=== PATIENT | male | born 1940 | race Caucasian/White ===

== ENCOUNTER 2018-02-14 10:33 | Emergency (ER) | payer MEDICARE, BC ==
[2018-02-14 10:44] VITALS: BP 151/81
--- NOTE | 2018-02-16 06:29 | UC ---
Evin Guadalupe Natalie, scribed for Genaro Pritchett MD on 02/14/18 at 1338 . Ear Complaint HPI - HPI Summary HPI Summary: The patient is a 77 y/o M presenting to [facility] c/o rubber covering from hearing aid getting stuck in his right ear. He was taking out his hearing aid when the rubber covering stayed in, and he couldn't get it out. He denies fever and chills. He does not take any medications. He is allergic to ampicillin. - History of Current Complaint Chief Complaint: UCEar Stated Complaint: FOREIGN BODY LODGED IN EAR Time Seen by Provider: 02/14/18 11:28 Hx Obtained From: Patient Onset/Duration: Sudden Onset, Lasting Hours, Still Present Pain Intensity: 0 Pain Scale Used: 0-10 Numeric Aggravating Factors: Nothing Alleviating Factors: Nothing Associated Signs/Symptoms: Positive: Foreign Body Sensation - covering in right ear - Allergies/Home Medications Allergies/Adverse Reactions: Allergies Allergy/AdvReac Type Severity Reaction Status Date / Time ampicillin Allergy Hives Verified 02/14/18 10:44 PMH/Surg Hx/FS Hx/Imm Hx - Additional Past Medical History Additional PMH: POSITIVE: hearing aids Other Endocrine History: NEGATIVE: diabetes - Surgical History Surgical History: Yes Surgery Procedure, Year, and Place: prostate,appendectomy,tonsilectomy - Social History Alcohol Use: None Alcohol Amount: 1-2 DRINKS/DAY Substance Use Type: None Smoking Status (MU): Former Smoker Have You Smoked in the Last Year: No When Did the Patient Quit Smoking/Using Tobacco: 1977 Review of Systems Constitutional: Other - NEGATIVE: fevers, chills ENT: Other - rubber covering from hearing aid in right ear All Other Systems Reviewed And Are Negative: Yes Physical Exam - Summary Physical Exam Summary: Appearance: Well-Appearing, No Pain Distress, Well-Nourished Eyes: conjunctiva clear, no discharge ENT: Hearing grossly normal, no muffled/hoarse voice, right ear has impacted cerumen, rubber covering from hearing aid stuck in right ear Neck: Normal, Supple Respiratory/Lung Sounds: Lungs clear, Normal breath sounds, No respiratory distress, No accessory muscle use Cardiovascular: RRR, No murmur Abdomen: Nontender, Soft, no guarding, not distended Bowel Sounds: Present Musculoskeletal: Normal Neurological: Alert, muscle tone normal Psychiatric:Normal, age appropriate behavior Skin: Normal, Warm, Dry, Normal color Triage Information Reviewed: Yes Vital Signs: Initial Vital Signs Temp 98.8 F 02/14/18 10:39 Pulse 76 02/14/18 10:39 Resp 18 02/14/18 10:39 BP 151/81 02/14/18 10:39 Pulse Ox 100 02/14/18 10:39 Vital Signs Reviewed: Yes Ear Complaint Course/Dx - Course Course Of Treatment: The patient is a 77 y/o M presenting to [facility] c/o rubber covering from hearing aid stuck in his right ear after taking out his hearing aid. He denies fevers and chills. BP noted and advised to follow up with PCP. Medications reviewed. Allergies noted. In the [facility], the rubber covering was removed with the help of a forcep. The impacted cerumen was removed through irrigation in both ears. Patient will be discharged home with instructions for foregin body in ear. He is advised to follow up with his PCP in one week. Patient is agreeable with this plan. - Differential Dx/Diagnosis Provider Diagnoses: foreign body in ear Discharge - Sign-Out/Discharge Documenting (check all that apply): Discharge/Admit/Transfer - Pt will be discharged home. - Discharge Plan Condition: Stable Disposition: HOME Patient Education Materials: Ear Foreign Body (ED) Referrals: Warren Colbert MD [Primary Care Provider] - Additional Instructions: Follow up with your primary care doctor as scheduled. Patients blood pressure slightly high in Urgent care today , plan follow up with PCP for better control Return to Urgent care / ER if symptoms get worse. - Billing Disposition and Condition Condition: STABLE Disposition: Home The documentation as recorded by the zev, Justina Cleary SCRIBE accurately reflects the service I personally performed and the decisions made by me, Genaro Pritchett MD.
== END 2018-02-14 12:17 | disposition home or self-care (01) ==
LOC: UCEAST 10:33
DX: T16.1XXA Foreign body in right ear, initial encounter (principal); X58.XXXA Exposure to other specified factors, initial encounter; Y93.9 Activity, unspecified; Y92.9 Unspecified place or not applicable; Z88.0 Allergy status to penicillin; Z87.891 Personal history of nicotine dependence
CPT/HCPCS: 69200; 99213; G0463

== ENCOUNTER 2022-10-11 17:49 | Inpatient (IN) ==
[2022-10-11] MEDS ORDERED: Acetaminophen IV 1 GM/100ML 1,000 MG/100 ML BAG IV ONE (18:00)
[2022-10-11] MEDS ORDERED: NS 0.9% 1000 ml BAG 1,000 ML IV SCH (18:15)
[2022-10-11] MEDS ORDERED: Polyethylene Glycol 3350 17 GM PACKET PO PRN (22:50)
[2022-10-11] MEDS ORDERED: Senna TAB 8.6 mg TAB PO PRN (22:50)
[2022-10-12] MEDS: Morphine ORAL CONCENTRATE 5 MG/0.25 ML ORAL.SYRIN SL PRN (14:42)
[2022-10-12 17:35] LABS: Urine Appearance Cloudy; Urine Bilirubin Negative (Negative); Urine Blood Negative (Negative); Urine Color Yellow; Urine Glucose Negative (Negative); Urine Ketones Negative (Negative); Urine Nitrite Positive (Negative); Urine Protein Negative (Negative); Urine Specific Gravity 1.013 (1.002-1.030); Urine Urobilinogen Negative (Negative)
[2022-10-12 17:48] LABS: Urine Bacteria 1+ (Absent); Urine Red Blood Cell 2+(6-10/hpf) (Absent); Urine White Blood Cell 3+(>20/hpf) (Absent)
[2022-10-12] MEDS: Calcium Carbonate LIQ 1,250 mg/5 ml UDC PO SCH (21:53)
[2022-10-12] MEDS: Magnesium Hydroxide LIQ 30 ML UDC PO SCH (21:56)
[2022-10-13] MEDS: Morphine ORAL CONCENTRATE 5 MG/0.25 ML ORAL.SYRIN SL PRN ×2 (08:22→18:36)
[2022-10-13] MEDS: Calcium Carbonate LIQ 1,250 mg/5 ml UDC PO SCH (21:44)
[2022-10-13] MEDS: Magnesium Hydroxide LIQ 30 ML UDC PO SCH (21:48)
[2022-10-14 03:23] VITALS: BP 104/63
== END 2022-10-14 11:00 | disposition hospice, home (50) | DRG 689 ==
LOC: ED 17:49 → EDHOLD 17:49 → SUATTDRO 22:48 → SSU 10-12 13:15
PROVIDERS: ADMIT Student in an Organized Health Care Education/Training Program; ATTEND Internal Medicine